=== PATIENT | female | born 1955 | race Caucasian/White ===

== ENCOUNTER 2016-02-19 05:23 | Day surgery (SDC) | payer BC ==
[2016-02-18 15:31] LABS: HEMATOCRIT 37.9 % (36.0-48.0); HEMOGLOBIN 12.5 g/dL (12-16); MCH 32.5 pg (26.0-34.0); MCV 98.4 fL (80.0-100.0); MEAN PLATELET VOLUME 10.9 fL (7.4-10.4); RBC 3.85 10x6/uL (4.00-5.40); RDW 13.3 % (11.5-14.5); WBC 7.9 10x3/uL (4.8-10.8)
[~2016-02-19] VITALS: Ht 160 cm; Wt 62.1 kg
[2016-02-19 06:19] VITALS: BP 125/74; Ht 160 cm; Wt 62.1 kg
[2016-02-19] MEDS ORDERED: BENICAR HCT 20-1 TA1 PO (06:23)
[2016-02-19 07:01] LABS: CALC OSMOLALITY 273 mosm/kg (275-300); CALCIUM 8.7 mg/dL (8.5-10.1); CARBON DIOXIDE 24.1 mmol/L (21.0-32.0); CHLORIDE - SERUM 104 mmol/L (98-107); CREATININE - SERUM 0.8 mg/dL (0.6-1.3); GLUCOSE 99 mg/dL (74-106); POTASSIUM - SERUM 3.7 mmol/L (3.5-5.1); SODIUM 137 mmol/L (136-145); UREA NITROGEN 13 mg/dL (7-18); eGFR NON AFRICAN AMERICAN 77 mL/min (90-120)
--- NOTE | 2016-02-19 09:31 | NUR ---
XR DONE AT BEDSIDE
--- NOTE | 2016-02-19 12:09 | NUR ---
1130--IV DC'D, PT UP TO DRESS AT THIS TIME. ASHLIE SCHILLING 1145--DISCHARGE INSTRUCTIONS GIVEN, PT VERBALIZES UNDERSTANDING. PT OFF UNIT VIA WC. ASHLIE SCHILLING
--- NOTE | 2016-03-18 09:50 | OP ---
PATIENT NAME: WAQAS MELENDEZ MEDICAL RECORD: [id number] :51 LOCATION:[facility] ADMISSION DATE: SURGEON: ESTER GORDILLO DPM DATE OF OPERATION: 02/19/2016 PREOPERATIVE DIAGNOSES: 1. Instability, right first met cuneiform joint. 2. Hallux abducto valgus, right foot. 3. Hammertoe, right second, third and fourth digits. 4. Plantar plate rupture, right second metatarsophalangeal joint. POSTOPERATIVE DIAGNOSES: 1. Instability, right first met cuneiform joint. 2. Hallux abducto valgus, right foot. 3. Hammertoe, right second, third and fourth digits. 4. Plantar plate rupture, right second metatarsophalangeal joint. PROCEDURES: 1. Odom bunionectomy, right foot. 2. First met cuneiform joint fusion, right foot. 3. Plantar plate repair, right second MPJ. 4. PIPJ fusion, right second digit. 5. PIPJ fusion, right third digit. 6. Flexor tenotomy, right fourth digit. ANESTHESIA: Preoperative popliteal block per the anesthesia department with general anesthesia intraoperatively, as well as 8 cc of lidocaine and Marcaine along the saphenous nerve at the anterior medial right ankle. HEMOSTASIS: Right thigh tourniquet at 350 mmHg. PREOPERATIVE DETAILS: The patient was taken to the OR and placed on the operating table in supine position. This was followed by induction of general anesthesia. Right extremity was then prepped and draped in the usual aseptic technique followed by exsanguination of extremity and inflation of tourniquet, 8 cc of lidocaine and Marcaine were then infiltrated on the anterior medial ankle. PROCEDURE NUMBER 1: Odom bunionectomy, right foot. A 15 blade was used to create a incision from the medial cuneiform distally to the dorsal aspect of the IPJ of the hallux. The incision was deepened down through subcutaneous tissue. The first MPJ was delivered and an inverted L capsulotomy was performed. The medial capsular flap was reflected and the head of the first metatarsal was delivered. Sagittal saw was used to resect the medial eminence. Attention directed to the first interspace, where a lateral release was performed. Good clinical reduction of the lateral contractures was verified. PROCEDURE NUMBER 2: First met cuneiform joint fusion, right foot. The incision as described in #1 was carried proximal down to the periosteum avoiding the dorsal cutaneous nerves. Periosteal incision was made, freeing the dorsal aspect from the top of the first metatarsal and the middle cuneiform. A sagittal saw was used to resect the joint. Temporary fixation was placed with K-wire, followed by application of a 5-hole plate with one of the holes being a compression screw across the osteotomy site. Once the hardware was in place, the C-arm was used to verify good alignment of the first ray as well as orientation of the fixation. Excellent rigid internal fixation was noted. The OPERATIVE REPORT [id number] WAQAS MELENDEZ wound was flushed. The deep tissue and joint capsule repaired with 2-0 Vicryl, the subcutaneous tissue with 4-0 Rapide and the skin was closed with 4-0 Rapide in a subcuticular technique. PROCEDURE NUMBER 3: Plantar plate repair, right second MPJ. A 15 blade was used to create a curvilinear incision from the distal middle shaft of the second metatarsal on top of the PIPJ of the second digit. The incision was deepened down through subcutaneous tissue to the extensor longus tendon, which was transected in a Z fashion. Dorsal capsulotomy was then performed and the second MPJ was acquired. McGlamry scoop elevator was used to free the plantar structures. A sagittal saw was used to create a Chavo osteotomy. The capital fragment was translocated proximal and temporarily fixated with a K-wire. Another K-wire was drilled in the shaft of the second digit via the proximal phalanx, at which time a wire retractor was placed over and the joint was distracted. There was noted to be a significant lateral tear of the plantar plate. At this time, the 15-blade was used to free the plantar plate from the base of the proximal phalanx and the FiberWire was passed through the plantar plate encompassing the tear. Two small drill holes were made in the base of the proximal phalanx of the second digit, which the FiberWire was passed up through. The temporary fixation for the Chavo was removed as well as the pin of the second digit. The Chavo osteotomy was then fixated with 2 popoff screws. The FiberWire was passed up through the base of the proximal phalanx through the small drill holes and were tied off after the fusion procedure of the PIPJ of the second digit. PROCEDURE NUMBER 4: PIPJ fusion, second digit. The extensor longus tendon was freed from the dorsal aspect of the proximal phalanx, the PIPJ was delivered. A sagittal saw was used to resect both the distal aspect of the proximal phalanx, the proximal aspect of the middle phalanx. A 2.7 drill was then drilled in both the TenFuse bone graft was then placed in the shaft of the proximal phalanx with the middle phalanx being ____ up over and then compressed on top of the graft giving excellent fixation. At this time, as was stated before, the sutures were tied or passed up through the drill holes in the proximal phalanx with the digit held in a slightly plantar flexed and lateral position giving excellent alignment of the 2nd digit at the MPJ. PROCEDURE NUMBER 5: PIPJ fusion, right third digit. Two transverse incisions ____ elliptical were made over the dorsal aspect of the PIPJ. Skin wedge was removed. A transverse incision was made through the extensor longus tendon acquiring the PIPJ. A sagittal saw was used to resect both services. A 2.7 drill hole was drilled in both followed by placement of the TenFuse bone graft with the capital fragment on top of the bone graft and compressed noting excellent fixation and alignment of the digit. Closure of the wound on the second ray was performed with 2-0 Vicryl at the joint capsule, 4-0Rapide reapproximating the extensor longus tendon and subcutaneous tissue followed by closure of the skin with the 4-0 Rapide in a subcuticular technique. The incision on the third digit was closed with simple interrupted sutures utilizing 4-0 Rapide. PROCEDURE NUMBER 6: Flexor tenotomy, right fourth digit. A 15 blade was used to create a small stab incision on the plantar aspect of the base of the fourth digit. The incision was carried deeply to the flexor tendon, which was transected in total allowing release of the contractures of the digit. Wound was flushed and closed with Dermabond. A Dermabond was placed on all the wounds followed by Adaptic, 4 x 4 and conform and an application of a modified Noonan OPERATIVE REPORT [id number] WAQAS MELENDEZ compression dressing. Tourniquet was deflated. POSTOPERATIVE DETAILS: The patient tolerated the procedure well and left the OR with vital signs stable and vascular status at preoperative levels. The patient was transported to recovery per anesthesia in stable condition. TRANSINT:[id number] Voice Confirmation ID: [id number] DOCUMENT ID: [id number] ESTER GORDILLO DPM at 0950 CC: [id number] DICTATION DATE: 02/19/16921 IMMIGRATION PATROL INSPECTOR: 02/19/16 1109 [facility] 02/19/[address] [address]
== END 2016-02-19 11:45 | disposition home or self-care (01) ==
LOC: D.PAN 05:23 → D.OPS 07:30 → D.PAN 07:30
PROVIDERS: Anesthesiology
DX: M20.11 Hallux valgus (acquired), right foot (principal); M20.41 Other hammer toe(s) (acquired), right foot; S96.011A Strain of muscle and tendon of long flexor muscle of toe at ankle and foot level, right foot, initial encounter; M25.374 Other instability, right foot

== ENCOUNTER 2016-09-30 05:00 | Day surgery (SDC) | payer BC ==
[2016-09-29 11:26] LABS: HEMOGLOBIN 13.4 g/dL (12-16); MCH 32.5 pg (26.0-34.0); MCHC 33.5 g/dL (31.0-37.0); MCV 97.1 fL (80.0-100.0); RBC 4.12 10x6/uL (4.00-5.40); RDW 13.6 % (11.5-14.5); WBC 8.1 10x3/uL (4.8-10.8)
[2016-09-29 11:33] LABS: ANION GAP 11.8 mmol/L (8-16); CALCIUM 8.7 mg/dL (8.5-10.1); CARBON DIOXIDE 26.7 mmol/L (21.0-32.0); CREATININE - SERUM 0.9 mg/dL (0.6-1.3); POTASSIUM - SERUM 4.5 mmol/L (3.5-5.1)
[~2016-09-30] VITALS: Ht 160 cm; Wt 61.4 kg
--- NOTE | ~2016-09-30 | OP ---
PATIENT NAME: WAQAS MELENDEZ MEDICAL RECORD: [id number] :51 LOCATION:[facility] ADMISSION DATE: SURGEON: ESTER GORDILLO DPM DATE OF OPERATION: 09/30/2016 PREOPERATIVE DIAGNOSES: 1. Hallux abductovalgus, left foot. 2. Dorsal spur, left foot. 3. Plantar plate rupture, left second metatarsophalangeal joint. 4. Hammertoe, left second digit. POSTOPERATIVE DIAGNOSES: 1. Hallux abductovalgus, left foot. 2. Dorsal spur, left foot. 3. Plantar plate rupture, left second metatarsophalangeal joint. 4. Hammertoe, left second digit. PROCEDURES NUMBER: 1. Kin bunionectomy, left foot. 2. Spur removal, dorsal left foot. 3. Chavo osteotomy, left second metatarsal. 4. Plantar plate repair, left second MPJ. 5. PIPJ fusion, left 2nd digit. ANESTHESIA: General with local infiltrate utilizing lidocaine and Marcaine plain, approximately 20 cc total around the first ray and the second ray of the left foot. HEMOSTASIS: Left thigh tourniquet at 350 mmHg. PREOPERATIVE DETAILS: The patient was taken to the OR, placed on the operating table in supine position. This was followed by induction of general anesthesia and infiltration of local anesthetic. The left extremity was then prepped and draped in the usual aseptic technique followed by exsanguination of extremity and inflation of tourniquet. PROCEDURE NUMBER 1: Kin bunionectomy, left foot. A 15-blade was used to create a 3.5-cm linear incision over the dorsal aspect of the first MPJ. The incision was deepened down through subcutaneous tissue being sure to avoid all vital structures. Dissection was carried down to the first MPJ where an inverted L capsulotomy was performed. The medial capsular flap was reflected and the head of the first metatarsal was delivered. A sagittal saw was used to resect the medial eminence. Attention was directed to the first interspace where a lateral release was performed. Attention was then redirected to the medial aspect of the head of the first metatarsal where a sagittal saw was used to create a V osteotomy through and through. The capital fragment was translocated laterally and fixated with a 0.062 inch K-wire. The pin was cut. The wound was flushed. The medial redundant shelf was resected. Good alignment was noted. The joint capsule was then repaired with 2-0 Vicryl, the subcutaneous tissue with 4-0 Rapide, and the skin was closed with 4-0 Rapide in a subcuticular technique. PROCEDURE NUMBER 2: Spur removal, dorsal aspect of the left foot. A 15-blade was used to create a roughly 2-cm linear incision over the dorsal aspect of the first met cuneiform joint. The incision deepened down through subcutaneous OPERATIVE REPORT [id number] WAQAS MELENDEZ tissue being sure to avoid the nerve and vein. Dissection was carried down to the periosteum where a linear periosteal incision was made and freed from the dorsal aspect of the spur. Osteotome and mallet were used to resect the spurring followed by smoothing with a rasp. Wound was flushed. The periosteum was repaired with 2-0 Vicryl, the subcutaneous tissue with 4-0 Rapide, and the skin was closed with 4-0 Rapide in a subcuticular technique. PROCEDURE NUMBER 3 AND 4: Chaov osteotomy, left second metatarsal. A 15-blade was used to create a curvilinear incision on the dorsal aspect of the left second metatarsal distally over the top of the PIPJ of the second digit. The incision was deepened down through subcutaneous tissue, exposing the extensor longus tendon, which was transected in a Z fashion. The linear capsulotomy was then performed on the second MPJ bringing the second metatarsal head and the base of proximal phalanx. A McGlamry scoop elevator was then used to free the plantar structures. A sagittal saw was then used to create a Chavo osteotomy from dorsal distal to plantar proximal. The capital fragment was translocated posteriorly, proximally and temporarily fixated with a K-wire allowing access to the plantar plate. A second K-wire was then placed in the proximal phalanx of the second digit. A wire retractor was placed over the wires distracting the joint. It was noted upon initial inspection there was a significant tear, oblique, on the lateral side of the plantar plate. I used a pigtail passer to pass FiberWire across the tear and the tear was repaired. At this time, a 15 blade was used to create an incision as the plantar plate attached to the base of the proximal phalanx. Once it was freed, a scorpion passer was used to pass FiberWire through the plantar plate. Two small drill holes were made in the base of the proximal phalanx of the second digit. The FiberWire was then passed up through the drill holes. The wire was removed from both the proximal phalanx and the second metatarsal. The second metatarsal head was put back in proper position utilizing 2 pop-off screws to fixate it. We did not suture the plantar plate repair at this time. PROCEDURE NUMBER 5: PIPJ fusion, left 2nd digit. The incision as described in #3 allowed access to the PIPJ. The extensor longus tendon was freed. Utilizing a sagittal saw, a small peg was created out of the distal aspect of the proximal phalanx in preparation for peg-in-hole procedure. The cartilage was removed from the base of the middle phalanx and a drill hole was made in the middle phalanx to accommodate the PEG. Once the PEG was fashioned, the distal fragment was placed on top of the PEG noting excellent fixation as well as alignment of the second digit. At this time, with the fusion procedure completed, the plantar plate repair was completed by holding the second digit in a plantar flexed and lateral position and the surgeon's knots were used to secure the FiberWire on top of the proximal phalanx up through the drill holes. Excellent alignment was noted. Once the suture was tied, the wound was flushed. The capsule of second MPJ was repaired with 2-0 Vicryl. The extensor longus tendon was then repaired with 4-0 Rapide. The subcutaneous tissue was repaired with 4-0 Rapide and the skin was closed with 4-0 Rapide in a subcuticular technique. All wounds were covered with Dermabond. Adaptic, 4 x 4 and Conform followed by application of a modified Noonan compression dressing. Tourniquet was deflated. POSTOPERATIVE DETAILS: The patient tolerated the procedure well and left the OR with vital signs stable and vascular status at preoperative levels. The patient was transported to recovery per anesthesia in stable condition. TRANSINT:[id number] Voice Confirmation ID: [id number] DOCUMENT ID: [id number] OPERATIVE REPORT [id number] WAQAS MELENDEZ MCKAY DPM CC: [id number] DICTATION DATE: 09/30/16929 [employer]OTTON GIN[employer] HELPER: 09/30/16 1206 [facility] 09/30/16 [facility] [address] [place] [address]
[~2016-09-30 05:00] MED LIST: ALENDRONATE SOD70 MG PO; BENICAR HCT 20-1 TA1 PO; CALCI-CHEW1 TAB.CHEW PO; FISH OIL 1,0001 CA1 PO; MULTIPLE VITAMI1 TA1 PO; VAGIFEM10 MCG VG; VITAMIN D2000 UNIT PO
[2016-09-30 06:25] VITALS: BP 141/67; Ht 160 cm; Wt 61.4 kg
== END 2016-09-30 11:14 | disposition home or self-care (01) ==
LOC: D.OPS 05:00 → D.PAN 07:00 → D.OPS 07:00
PROVIDERS: Anesthesiology
DX: M20.12 Hallux valgus (acquired), left foot (principal); M77.52 Other enthesopathy of left foot and ankle; S93.612A Sprain of tarsal ligament of left foot, initial encounter; M20.42 Other hammer toe(s) (acquired), left foot; Z01.812 Encounter for preprocedural laboratory examination